=== PATIENT | male | born 2000 | race Caucasian/White ===

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

== ENCOUNTER 2022-02-02 10:44 | Emergency (ER) | payer MEDICAID ==
[~2022-02-02] VITALS: Ht 172.7 cm; Wt 72.0 kg
[2022-02-02] MEDS ORDERED: HALOPERIDOL LACTATE 5MG/ML VIAL IM STA (11:09)
[2022-02-02] MEDS ORDERED: HALOPERIDOL LACTATE 5MG/ML VIAL IM SCH (13:30)
[2022-02-02 14:52] LABS: BASOPHILS % 0.3 % (0.0-2.0); HEMATOCRIT. 45.9 % (42.0-52.0); HEMOGLOBIN. 15.3 g/dL (14.0-18.0); LYMPHOCYTES % 18.4 % (20.0-50.0); MEAN CORPUSCULAR HEMOGLOBIN 29.2 pg (28.0-32.0); MEAN CORPUSCULAR VOLUME 87.3 fL (80.0-94.0); MEAN PLATELET VOLUME 8.4 fl (7.4-10.4); NEUTROPHILS % 71.3 % (40.0-76.0); PLATELET 242 x1000/uL (130-400); RED BLOOD CELL COUNT 5.25 mill/uL (4.7-6.1); RED CELL DISTRIBUTION WIDTH 14.2 % (11.6-14.6)
[2022-02-02 15:03] LABS: CHLORIDE 107 mEq/L (98-107)
[2022-02-02 15:09] LABS: ETHANOL BLOOD < 10 mg/dL
[2022-02-02] MEDS ORDERED: SODIUM CHLORIDE 0.9% 1,000 ML IV ONE (16:30)
[2022-02-02 19:56] LABS: *AMPHETAMINES SCREEN URINE PRESUMTIVE POSITIVE (NEGATIVE); *BARBITURATES SCREEN URINE NEGATIVE (NEGATIVE); *BENZODIAZEPINES SCREEN URINE NEGATIVE (NEGATIVE); *COCAINE SCREEN URINE NEGATIVE (NEGATIVE); CANNABINOID URINE SCREEN PRESUMTIVE POSITIVE (NEGATIVE); METHADONE URINE SCREEN NEGATIVE (NEGATIVE); OPIATES URINE SCREEN NEGATIVE (NEGATIVE); PHENCYCLIDINE URINE SCREEN NEGATIVE (NEGATIVE)
[2022-02-03] MEDS ORDERED: OLANZAPINE 10MG TABLET PO SCH (21:00)
[2022-02-04 10:30] VITALS: BP 99/67
== END 2022-02-04 11:07 ==
LOC: ER 10:56
DX: R44.0 Auditory hallucinations (principal); R45.851 Suicidal ideations; I49.9 Cardiac arrhythmia, unspecified; Z20.822 Contact with and (suspected) exposure to COVID-19
CPT/HCPCS: 36415; 80053; 80305; 80307; 80320; 80329; 85025; 87426; 93005; 96360; 96361; 99285; C9803; J1630; J7030; G0480

== ENCOUNTER 2022-02-22 15:25 | Emergency (ER) | payer MEDICAID ==
[~2022-02-22] VITALS: Ht 167.6 cm; Wt 63.0 kg
[2022-02-22 15:33] VITALS: BP 121/72
== END 2022-02-22 18:44 | disposition left against medical advice (07) ==
LOC: ER 15:25
DX: Z53.21 Procedure and treatment not carried out due to patient leaving prior to being seen by health care provider (principal)

== ENCOUNTER 2022-02-26 22:28 | Emergency (ER) | payer MEDICAID ==
[~2022-02-26] VITALS: Ht 165.1 cm; Wt 60.0 kg
[2022-02-26 22:32] VITALS: BP 150/90
== END 2022-02-27 05:13 | disposition home or self-care (01) ==
LOC: ER 22:28
DX: F41.9 Anxiety disorder, unspecified (principal); F12.90 Cannabis use, unspecified, uncomplicated; I49.8 Other specified cardiac arrhythmias
CPT/HCPCS: 93005; 99283

== ENCOUNTER 2022-05-26 16:56 | Emergency (ER) | payer MEDICAID ==
[~2022-05-26] VITALS: Ht 172.7 cm; Wt 64.0 kg
[2022-05-26] MEDS ORDERED: LORAZEPAM 2MG/ML CPJ IV STA (17:42)
[2022-05-26] MEDS ORDERED: HALOPERIDOL LACTATE 5MG/ML VIAL IM STA (17:42)
[2022-05-26] MEDS ORDERED: TETANUS, DIPHTHERIA, PERTUSSIS VAC/PF 0.5ML (>10YR OLD) IM ONE ×2 (18:15→21:00)
[2022-05-26 19:24] LABS: BASOPHILS % 0.2 % (0.0-2.0); EOSINOPHILS % 1.4 % (0.0-5.0); HEMATOCRIT. 45.9 % (42.0-52.0); HEMOGLOBIN. 15.4 g/dL (14.0-18.0); LYMPHOCYTES % 34.5 % (20.0-50.0); MEAN CORPUSCULAR HEMOGLOBIN 29.3 pg (28.0-32.0); MEAN CORPUSCULAR VOLUME 87.6 fL (80.0-94.0); MEAN PLATELET VOLUME 7.4 fl (7.4-10.4); MONOCYTES % 8.2 % (2.0-8.0); NEUTROPHILS % 55.7 % (40.0-76.0); PLATELET 284 x1000/uL (130-400); RED BLOOD CELL COUNT 5.25 mill/uL (4.7-6.1); RED CELL DISTRIBUTION WIDTH 13.7 % (11.6-14.6)
[2022-05-26 19:38] LABS: CHLORIDE 113 mEq/L (98-107); PROTHROMBIN TIME 10.8 sec (9.6-11.0)
[2022-05-26 19:55] LABS: ETHANOL BLOOD 299 mg/dL
[2022-05-26 20:58] LABS: CLARITY URINE CLEAR (CLEAR); COLOR URINE YELLOW (YELLOW); KETONES URINE NEGATIVE (NEGATIVE); LEUKOCYTE ESTERASE URINE NEGATIVE (NEGATIVE); NITRITE URINE NEGATIVE (NEGATIVE); OCCULT BLOOD URINE NEGATIVE (NEGATIVE); PROTEIN URINE NEGATIVE (NEGATIVE); SPECIFIC GRAVITY URINE 1.003 (1.005-1.030); UROBILINOGEN URINE 0.2 E.U./dL (0.2-1.0)
[2022-05-26 21:11] LABS: *AMPHETAMINES SCREEN URINE PRESUMTIVE POSITIVE (NEGATIVE); *BARBITURATES SCREEN URINE NEGATIVE (NEGATIVE); *BENZODIAZEPINES SCREEN URINE NEGATIVE (NEGATIVE); *COCAINE SCREEN URINE NEGATIVE (NEGATIVE); CANNABINOID URINE SCREEN PRESUMTIVE POSITIVE (NEGATIVE); METHADONE URINE SCREEN NEGATIVE (NEGATIVE); OPIATES URINE SCREEN NEGATIVE (NEGATIVE); PHENCYCLIDINE URINE SCREEN NEGATIVE (NEGATIVE)
[2022-05-26 21:13] VITALS: BP 101/50
== END 2022-05-27 06:47 | disposition home or self-care (01) ==
LOC: ER 16:56
DX: S60.417A Abrasion of left little finger, initial encounter (principal); S60.512A Abrasion of left hand, initial encounter; F15.10 Other stimulant abuse, uncomplicated; R45.1 Restlessness and agitation; F12.10 Cannabis abuse, uncomplicated; Z78.1 Physical restraint status; Z20.822 Contact with and (suspected) exposure to COVID-19; W22.8XXA Striking against or struck by other objects, initial encounter; Y93.89 Activity, other specified; Y92.89 Other specified places as the place of occurrence of the external cause; Y99.8 Other external cause status
CPT/HCPCS: 36415; 70450; 71045; 73130; 80053; 80305; 80307; 80320; 80329; 81003; 82140; 84443; 84484; 85025; 85610; 87426; 90471; 90715; 93005; 96372; 96374; 99291; C9803; J1630; J2060; Z7610; G0480

== ENCOUNTER 2022-06-15 07:11 | Emergency (ER) | payer MEDICAID ==
[~2022-06-15] VITALS: Ht 170.2 cm; Wt 68.4 kg
[2022-06-15 07:15] VITALS: BP 142/61
[2022-06-15] MEDS ORDERED: IBUP-2029 MT (10:04)
== END 2022-06-15 10:43 | disposition home or self-care (01) ==
LOC: ER 07:41
DX: M54.9 Dorsalgia, unspecified (principal); F15.10 Other stimulant abuse, uncomplicated
CPT/HCPCS: 99281